=== PATIENT | female | born 1945 | race Caucasian/White ===

== ENCOUNTER 2018-02-09 17:15 | Emergency (ER) | payer MEDICARE ==
--- OUTSIDE RECORDS SUMMARY | 2018-02-09 18:43 | XMS REPORT ---
:1945 External Reference #:[id number] Author Organization [facility] Address [address] [place] [address] Phone [phone] Care Team Providers Name Role Phone Arminda Lieberman M.D., R.D. Care Team Information Pipe Jeeper Unavailable Payers Type Date Identification Numbers Payment Provider Subscriber Commercial Effective: Policy Number: [facility] Nigel Goodson 2012 [id number] Expires: 2014 PayID: [id number] [address] [place] [address] Commercial Effective: 2014 Policy Number: [facility] Nigel Goodson [id number] PayID: [id number] [address] [place] [address] Problems Description No Information Social History Type Date Description Comments Marital Status Diet Healthy, Well Balanced is vegan so she cooks vegan. Eats fish and some poultry, eggs. 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 Quit age [age]. 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-C , may repeat in 2 hours if needed Calcium 600 0 Active Tablets 600mg 1 by Unknown 000 mouth every day [facility] D3 0 Active Capsules 1000Unit Unknown 000 Meclizine HCL Hx Tablets Arminda 016 - Luisana, Mamadou RTani [address] 40mg 21caps 1 by K29.01 Reggie 016 - mouth in [place], the MD 016 morning before eating Zofran Odt Hx Tablets 4mg 10tabs 1 tab by Reggie Soler - Dispers mouth [place], three MD 016 times a day Immunizations CPT Code Status Date Vaccine Lot # [id number] Given 08/16/2017 Influenza Virus Vaccine, Quadrivalent, 3 Yr > Quad, Preserv Free [id number] Given 02/02/2017 Prevnar-13 Pneumococcal Conjugate Vaccine [id number] Given 07/29/2016 Influenza Vaccine High Dose PF [id number] Given 09/04/2015 Influenza Vaccine High Dose PF Vital Signs Date Vital Result Comment 02/01/2018 Weight 133.00 lb Weight in kg's 60.329 BP Systolic 118 mmHg BP Diastolic 60 mmHg Heart Rate 71 /min Body Temperature 99.3 F Respiratory Rate 18 /min Height 64 inches 5'4" BMI (Body Mass Index) 22.8 kg/m2 O2 % BldC Oximetry 99 % 01/02/2018 Weight 136.00 lb Weight in kg's 61.690 BP Systolic 128 mmHg BP Diastolic 70 mmHg Heart Rate 60 /min Body Temperature 97.3 F Respiratory Rate 18 /min 02/02/2017 Weight 131.00 lb Weight in kg's 59.422 BP Systolic 110 mmHg BP Diastolic 60 mmHg Heart Rate 64 /min Respiratory Rate 12 /min Height 64 inches 5'4" BMI (Body Mass Index) 22.5 kg/m2 08/02/2016 Weight 127.00 lb Weight in kg's 57.607 BP Systolic 106 mmHg BP Diastolic 50 mmHg Heart Rate 66 /min Body Temperature 98.9 F Respiratory Rate 16 /min 05/08/2016 Weight 132.00 lb Weight in kg's 59.875 BP Systolic 145 mmHg BP Diastolic 60 mmHg Heart Rate 72 /min Body Temperature 98.1 F O2 % BldC Oximetry 99 % 05/05/2016 Weight 132.00 lb Weight in kg's 59.875 BP Systolic 108 mmHg BP Diastolic 59 mmHg Heart Rate 68 /min Body Temperature 97.7 F O2 % BldC Oximetry 98 % 04/28/2016 Weight 132.00 lb Weight in kg's 59.875 BP Systolic 120 mmHg BP Diastolic 64 mmHg Heart Rate 56 /min Body Temperature 99.4 F O2 % BldC Oximetry 98 % 01/13/2015 Weight 136.00 lb Weight in kg's 61.690 BP Systolic 100 mmHg BP Diastolic 50 mmHg Heart Rate 62 /min 10/28/2014 Weight 134.00 lb Weight in kg's 60.782 BP Systolic 100 mmHg BP Diastolic 48 mmHg Heart Rate 62 /min Height 64 inches 5'4" BMI (Body Mass Index) 23.0 kg/m2 Results Test Date Test Result H/L Range Note Comp Metabolic Panel 08/02/2016 Sodium 137 mmol/L 133-145 Potassium 4.6 mmol/L 3.5-5.0 Chloride 101 mmol/L 101-111 Co2 Carbon Dioxide 29 mmol/L 22-32 Anion Gap 7 mmol/L 2-11 Glucose 91 mg/dL 70-100 Blood Urea Nitrogen 23 mg/dL 6-24 Creatinine 1.13 mg/dL High 0.51-0.95 BUN/Creatinine Ratio 20.4 High 8-20 Calcium 9.8 mg/dL 8.6-10.3 Total Protein 7.7 g/dL 6.4-8.9 Albumin 4.3 g/dL 3.2-5.2 Globulin 3.4 g/dL 2-4 Albumin/Globulin Ratio 1.3 1-3 Total Bilirubin 0.30 mg/dL 0.2-1.0 Alkaline Phosphatase 65 U/L 34-104 Alt 15 U/L 7-52 Ast 21 U/L 13-39 Egfr Non- 47.3 >60 Egfr 60.9 >60 1 CBC Auto Diff 08/02/2016 White Blood Count 7.7 10^3/uL 3.5-10.8 Red Blood Count 3.68 10^6/uL Low 4.0-5.4 Hemoglobin 11.8 g/dL Low 12.0-16.0 Hematocrit 35 % 35-47 Mean Corpuscular Volume 96 fL 80-97 Mean Corpuscular Hemoglobin 32 pg High 27-31 Mean Corpuscular HGB Conc 33 g/dL 31-36 Red Cell Distribution Width 14 % 10.5-15 Platelet Count 360 10^3/uL 150-450 Mean Platelet Volume 9 um3 7.4-10.4 Abs Neutrophils 3.9 10^3/uL 1.5-7.7 Abs Lymphocytes 2.9 10^3/uL 1.0-4.8 Abs Monocytes 0.5 10^3/uL 0-0.8 Abs Eosinophils 0.3 10^3/uL 0-0.6 Abs Basophils 0.1 10^3/uL 0-0.2 Abs Nucleated RBC 0 10^3/uL Granulocyte % 50.5 % 38-83 Lymphocyte % 38.0 % 25-47 Monocyte % 6.8 % 1-9 Eosinophil % 3.5 % 0-6 Basophil % 1.2 % 0-2 Nucleated Red Blood Cells % 0 Laboratory test finding 08/02/2016 TSH (Thyroid Stim Horm) 1.71 mcIU/mL 0.34-5.60 2 C Reactive Protein 2.89 mg/L < 5.00 3 Laboratory test 07/06/2016 Surgical Interface SEE RESULT BELOW 4, 5 finding Order CBC Auto Diff 05/08/2016 White Blood Count 5.5 10^3/uL 3.5-10.8 Red Blood Count 3.33 10^6/uL Low 4.0-5.4 Hemoglobin 10.5 g/dL Low 12.0-16.0 Hematocrit 32 % Low 35-47 Mean Corpuscular Volume 96 fL 80-97 Mean Corpuscular Hemoglobin 32 pg High 27-31 Mean Corpuscular HGB Conc 33 g/dL 31-36 Red Cell Distribution Width 14 % 10.5-15 Platelet Count 515 10^3/uL High 150-450 Mean Platelet Volume 8 um3 7.4-10.4 Abs Neutrophils 3.6 10^3/uL 1.5-7.7 Abs Lymphocytes 1.5 10^3/uL 1.0-4.8 Abs Monocytes 0.2 10^3/uL 0-0.8 Abs Eosinophils 0.1 10^3/uL 0-0.6 Abs Basophils 0.1 10^3/uL 0-0.2 Abs Nucleated RBC 0.01 10^3/uL Granulocyte % 65.4 % 38-83 Lymphocyte % 27.9 % 25-47 Monocyte % 3.7 % 1-9 Eosinophil % 1.0 % 0-6 Basophil % 2.0 % 0-2 Nucleated Red Blood Cells % 0.2 Urinalysis Profile 05/08/2016 Urine Color Yellow Urine Appearance Clear Urine Specific Kinde 1.011 1.010-1.030 Urine pH 6.0 5-9 Urine Urobilinogen Negative Negative Urine Ketones Negative Negative Urine Protein Negative Negative Urine Leukocytes Negative Negative Urine Blood Negative Negative Urine Nitrite Negative Negative Urine Bilirubin Negative Negative Urine Glucose Negative Negative Laboratory test finding 05/08/2016 Lactic Acid 1.0 mmol/L 0.5-2.0 6 Comp Metabolic Panel 05/08/2016 Sodium 131 mmol/L Low 133-145 Chloride 98 mmol/L Low 101-111 Co2 Carbon Dioxide 24 mmol/L 22-32 Glucose 97 mg/dL 70-100 Blood Urea Nitrogen 12 mg/dL 6-24 Creatinine 0.87 mg/dL 0.51-0.95 BUN/Creatinine Ratio 13.8 8-20 Calcium 9.2 mg/dL 8.6-10.3 Total Protein 7.4 g/dL 6.4-8.9 Albumin 3.4 g/dL 3.2-5.2 Globulin 4.0 g/dL 2-4 Albumin/Globulin Ratio 0.9 Low 1-3 Total Bilirubin 0.50 mg/dL 0.2-1.0 Alkaline Phosphatase 440 U/L High 34-104 Alt 128 U/L High 7-52 Egfr Non- 64.0 >60 Egfr 82.3 >60 7 Potassium 4.1 mmol/L 3.5-5.0 Anion Gap 9 mmol/L 2-11 Ast 64 U/L High 13-39 Laboratory test finding 05/08/2016 Lipase 30 U/L 11.0-82.0 C Reactive Protein 39.85 mg/L High < 5.00 8 Laboratory test finding 04/24/2016 Lactic Acid 1.1 mmol/L 0.5-2.0 9 Urine Culture SEE RESULT BELOW 10 Urinalysis Profile 04/24/2016 Urine Color Gracy Urine Appearance Cloudy Urine Specific Kinde 1.030 1.010-1.030 Urine pH 5.0 5-9 Urine Urobilinogen Negative Negative Urine Ketones 1+ Negative Urine Protein 1+(30 mg/dL) Negative Urine Leukocytes Negative Negative Urine Blood Negative Negative * * Negative 11 Urine Nitrite Negative Negative Urine Bilirubin Negative Negative Urine Glucose 1+(50 mg/dL) Negative Urine White Blood Cell Trace(0-5/hpf) Absent Urine Red Blood Cell 2+(6-10/hpf) Absent Urine Bacteria 1+ Absent Urine Squamous Epithelial Cell Present Absent Urine Hyaline Casts Present Absent Laboratory test finding 04/24/2016 Troponin I 0.01 ng/mL <0.03 12 Comp Metabolic Panel 04/24/2016 Sodium 131 mmol/L Low 133-145 Potassium 3.5 mmol/L 3.5-5.0 Chloride 100 mmol/L Low 101-111 Co2 Carbon Dioxide 23 mmol/L 22-32 Anion Gap 8 mmol/L 2-11 Glucose 178 mg/dL High 70-100 Blood Urea Nitrogen 18 mg/dL 6-24 Creatinine 0.90 mg/dL 0.51-0.95 BUN/Creatinine Ratio 20.0 8-20 Calcium 7.9 mg/dL Low 8.6-10.3 Total Protein 6.3 g/dL Low 6.4-8.9 Albumin 3.3 g/dL 3.2-5.2 Globulin 3.0 g/dL 2-4 Albumin/Globulin Ratio 1.1 1-3 Total Bilirubin 0.40 mg/dL 0.2-1.0 Alkaline Phosphatase 121 U/L High 34-104 Alt 58 U/L High 7-52 Ast 58 U/L High 13-39 Egfr Non- 61.5 >60 Egfr 79.2 >60 13 CBC Auto Diff 04/24/2016 White Blood Count 4.9 10^3/uL 3.5-10.8 Red Blood Count 3.40 10^6/uL Low 4.0-5.4 Hemoglobin 10.9 g/dL Low 12.0-16.0 Hematocrit 32 % Low 35-47 Mean Corpuscular Volume 95 fL 80-97 Mean Corpuscular Hemoglobin 32 pg High 27-31 Mean Corpuscular HGB Conc 34 g/dL 31-36 Red Cell Distribution Width 13 % 10.5-15 Platelet Count 167 10^3/uL 150-450 Mean Platelet Volume 9 um3 7.4-10.4 Abs Neutrophils 4.2 10^3/uL 1.5-7.7 Abs Lymphocytes 0.5 10^3/uL Low 1.0-4.8 Abs Monocytes 0.2 10^3/uL 0-0.8 Abs Eosinophils 0 10^3/uL 0-0.6 Abs Basophils 0 10^3/uL 0-0.2 Abs Nucleated RBC 0 10^3/uL Granulocyte % 84.4 % High 38-83 Lymphocyte % 11.1 % Low 25-47 Monocyte % 4.0 % 1-9 Eosinophil % 0 % 0-6 Basophil % 0.5 % 0-2 Nucleated Red Blood Cells % 0.1 Laboratory test finding 04/24/2016 Inr/Protime 1.11 0.89-1.11 Urine DIP 10/28/2014 Specific Kinde 1.010 1.01-1.02 Urine pH 7 High 5-6 Leukocytes trace Neg Urine Nitrites neg Neg Total Protein, Urine neg Neg Urine Glucose norm Norm Urine Ketones neg Neg Urobilinogen norm Norm Urine Bilirubin neg Neg Urine Blood neg Neg Comp Metabolic Panel 10/28/2014 Sodium 139 mmol/L 133-145 Potassium 4.0 mmol/L 3.5-5.0 Chloride 102 mmol/L 101-111 Co2 Carbon Dioxide 31 mmol/L 22-32 Anion Gap 6 mmol/L 2-11 Glucose 77 mg/dL 70-100 Blood Urea Nitrogen 16 mg/dL 6-24 Creatinine 1.02 mg/dL High 0.51-0.95 BUN/Creatinine Ratio 15.7 8-20 Calcium 9.5 mg/dL 8.6-10.3 Total Protein 7.0 g/dL 6.4-8.9 Albumin 4.1 g/dL 3.2-5.2 Globulin 2.9 g/dL 2-4 Albumin/Globulin Ratio 1.4 1-3 Total Bilirubin 0.40 mg/dL 0.2-1.0 Alkaline Phosphatase 53 U/L 34-104 Alt 13 U/L 7-52 Ast 18 U/L 13-39 Egfr Non- 53.6 >60 Egfr 68.9 >60 14 Lipid Profile (Trig/Chol/HDL) 10/28/2014 Triglycerides 89 mg/dL 15 Cholesterol 205 mg/dL 16 HDL Cholesterol 62.2 mg/dL 17 LDL Cholesterol 125 mg/dL 18 1 Because ethnic data is not always readily available, this report includes an eGFR for both -Americans and non- Americans. The National Kidney Disease Education Program (NKDEP) does not endorse the use of the MDRD equation for patients that are not between the ages of 18 and 70, are , have extremes of body size, muscle mass, or nutritional status, or are non- or non-. According to the National Kidney Foundation, irrespective of diagnosis, the stage of the disease is based on the level of kidney function: Stage Description GFR(mL/min/1.73 m(2)) 1 Kidney damage with normal or decreased GFR 90 2 Kidney damage with mild decrease in GFR 60-89 3 Moderate decrease in GFR 30-59 4 Severe decrease in GFR 15-29 5 Kidney failure <15 (or dialysis) 2 [id number] 3 Acute inflammation: >10.00 4 [id number] 5 SEE RESULT BELOW Name: NIGEL GOODSON : [address]: Don Osorio MD Acct: [id number] Unit: [id number] AGE: 71 Location: [facility] Re07/06/16 SEX: F Status: REG REF SPEC: [id number] RAFAEL: 07/06/[address] [facility] [address]: Don Osorio MD REQ: [id number] RECD: 07/06/16 STATUS: BRIANDA ZENDEJAS DR: Alpa Lieberman MD _ ORDERED: LEVEL IV COMMENTS: [id number] FINAL DIAGNOSIS Skin, left anterior shoulder, excision: -- Scar and residual basal cell carcinoma, nodular type. -- Deep, tip, and lateral margins are clear. COMMENT: The previous lesion at this site has been completely excised. CLINICAL HISTORY Previous biopsy at [place] [id number] B with diagnosis of basal cell carcinoma , superficial and nodular types; extending to the tissue edge PRE-OPERATIVE DIAGNOSIS Basal cell carcinoma; suture sarmiento 12 o'clock proximal apex margin GROSS DESCRIPTION The specimen is received in formalin labeled, Excision Basal Cell Carcinoma Left Anterior Shoulder, Suture Sarmiento 12:00 Proximal [place] Margin, and consists of a 3.6 x 1.2 cm torres-white wrinkled skin ellipse excised to a depth of 0.4 cm. There is a suture attached to one long axis, which designates the 12:00 proximal apex margin. The specimen is inked as follows: 9:00 half black, 3:00 half blue and 12:00 tip green, serially sectioned from 12:00 to 6:00 and entirely submitted in cassettes A through C to include ellipse ends in cassette A. Signed (signature on file) Abby Braden MD 11/22 1033 END OF REPORT * ML=Testing performed at Main Lab DEPARTMENT OF PATHOLOGY, [address] [place] [address] Jimmy Falcon M.D. Director [facility] # [id number] [facility] Severe Sepsis and Septic Shock Management Bundle Measure requires all lactic acids initially measuring >2.0 mmol/L be repeated. 7 Because ethnic data is not always readily available, this report includes an eGFR for both -Americans and non- Americans. The National Kidney Disease Education Program (NKDEP) does not endorse the use of the MDRD equation for patients that are not between the ages of 18 and 70, are , have extremes of body size, muscle mass, or nutritional status, or are non- or non-. According to the National Kidney Foundation, irrespective of diagnosis, the stage of the disease is based on the level of kidney function: Stage Description GFR(mL/min/1.73 m(2)) 1 Kidney damage with normal or decreased GFR 90 2 Kidney damage with mild decrease in GFR 60-89 3 Moderate decrease in GFR 30-59 4 Severe decrease in GFR 15-29 5 Kidney failure <15 (or dialysis) 8 Acute inflammation: >10.00 9 [facility] Severe Sepsis and Septic Shock Management Bundle Measure requires all lactic acids initially measuring >2.0 mmol/L be repeated. 10 SEE RESULT BELOW Name: HAMZAHLORETANIGEL : [address]: Valentín Anthony MD Acct: [id number] Unit: [id number] AGE: 71 Location: ED Re04/24/16 SEX: F Status: DEP ER SPEC: [id number] RAFAEL: 04/24/16-[address] [facility] [address]: Valentín Anthony MD REQ: [id number] RECD: 04/24/168529 STATUS: COMP [facility] DR: Arminda Lieberman MD _ SOURCE: URINE SPDESC: ORDERED: Urine Culture Procedure Result Reported Site Urine Culture Final 04/26/16- 832 ML No growth of clinically significant organisms * ML - MAIN LAB ([facility]) . END OF REPORT * ML=Testing performed at Main Lab DEPARTMENT OF PATHOLOGY, [address] [place] [address] Jimmy Falcon M.D. Director [facility] # [id number] 11 *Ascorbic acid is present which may interfere with detection of blood. 12 Reference Range and Interpretation: TnI (ng/mL) Interpretation Less Than 0.03 ng/mL Not supportive of diagnosis of NC 0.03 - 0.50 ng/mL Indeterminate: suggest serial studies if clinically indicated. Greater than 0.5 ng/mL Consistent with diagnosis of NC 13 Because ethnic data is not always readily available, this report includes an eGFR for both -Americans and non- Americans. The National Kidney Disease Education Program (NKDEP) does not endorse the use of the MDRD equation for patients that are not between the ages of 18 and 70, are , have extremes of body size, muscle mass, or nutritional status, or are non- or non-. According to the National Kidney Foundation, irrespective of diagnosis, the stage of the disease is based on the level of kidney function: Stage Description GFR(mL/min/1.73 m(2)) 1 Kidney damage with normal or decreased GFR 90 2 Kidney damage with mild decrease in GFR 60-89 3 Moderate decrease in GFR 30-59 4 Severe decrease in GFR 15-29 5 Kidney failure <15 (or dialysis) 14 Because ethnic data is not always readily available, this report includes an eGFR for both -Americans and non- Americans. The National Kidney Disease Education Program (NKDEP) does not endorse the use of the MDRD equation for patients that are not between the ages of 18 and 70, are , have extremes of body size, muscle mass, or nutritional status, or are non- or non-. According to the National Kidney Foundation, irrespective of diagnosis, the stage of the disease is based on the level of kidney function: Stage Description GFR(mL/min/1.73 m(2)) 1 Kidney damage with normal or decreased GFR 90 2 Kidney damage with mild decrease in GFR 60-89 3 Moderate decrease in GFR 30-59 4 Severe decrease in GFR 15-29 5 Kidney failure <15 (or dialysis) 15 Desirable <150 Borderline high 150-199 High 200-499 Very High >500 16 Desirable <200 Borderline high 200-239 High >239 17 Low <40 Desirable: 40-60 High: >60 18 Desirable <100 Near Optimal 100-129 Borderline high 130-159 High 160-189 Very High >189 Procedures Description No Information Encounters Type Date Location Provider CPT E/M Dx Office Visit 01/02/2018 11:15a [place] [address] M24.542 Office Visit 02/02/2017 9:30a Main Office Arminda Lieberman M.D., R.D. G0439 Z00.00 Z23 Office Visit 08/02/2016 3:45p Main Office Arminda Lieberman M.D., R.D. 03967 A87.9 H81.13 I95.0 Office Visit 05/08/2016 9:45a Main Office Arminda Lieberman M.D., R.Rafaela 62842 R51 M54.5 R10.84 Office Visit 05/05/2016 11:15a [place] [address] K29.01 Office Visit 04/28/2016 3:30p [place] [address] R51 Office Visit 01/13/2015 3:00p Main Office Arminda Lieberman M.D., R.DGiuliana 37514 238.2 Office Visit 10/28/2014 1:45p Main Office Arminda Lieberman M.D., R.DGiuliana G0438 V70.0 272.2 238.2 Plan of Care 02/01/2018 - Arminda Lieberman M.D., R.D.Z00.00 Encntr for general adult medical exam w/o abnormal findingsNew Labs:Comp Metabolic PanelLipid Profile (Trig/Chol/ HDL)Liver Function PanelRecommendations:The 5 Year Plan for your preventive health care is: Your colonoscopy is due next year. Flu shot yearly. We will give you the new Shingles vaccine with your upcoming labs. Annual exam at [facility]. Regular eye and dental care. Check your cholesterol and screen for diabetes yearly. Periodic mammograms and bone density scans.
--- NOTE | 2018-02-09 20:11 | RAD ---
INDICATION: Pain and swelling. COMPARISON: None TECHNIQUE: Duplex interrogation of the Lowerextremity was performed. FINDINGS: Deep veins: The common femoral, great saphenous, profunda femoris, proximal, mid, and distal deep femoral, popliteal, posterior tibial, and peroneal veins are patent. There is normal compressibility, augmentation, and phasic flow. Superficial veins: There are no findings of superficial thrombophlebitis. Popliteal fossa:There a popliteal cyst. The cyst measures 2.2 x 2.0 x 4.0 cm. There is a second elliptical collection in the calf measuring 7.9 x 0.9 x 3.8 cm which is likely contiguous with the popliteal cyst and has dissected into the soft tissues of the calf. Soft tissues:There are no soft tissue abnormalities. IMPRESSION: NO EVIDENCE OF DEEP VENOUS THROMBOSIS. POPLITEAL CYST WITH PRESUMED DISSECTION OF THE CYST INTO THE CALF
--- NOTE | 2018-02-09 21:07 | ED ---
Lower Extremity - HPI Summary HPI Summary: Pt here w/ LLE swelling this morning. 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 Although patient is somewhat active, she reports this was definitely a change in activity as well as a new surface for walking on even ground. She denies history of joint issues but does report this started as fullness and tenderness behind her left knee last week. She also admits to intermittent Cramping however she gets this bilaterally and has had it since she was a child. Typically treats with potassium and seems to improve. She's had a different type of ache in her left calf this time which is worse today with new onset of swelling. She also admits to driving in her vehicle down and back to [place] or [facility] yesterday. Denies redness, fever, streaking, groin pain, increased heart rate, chest pain, shortness of breath, bloody cough, back pain. No recent history of trauma, denies smoking, no history of cancer, no hormone use, no bleeding or clotting disorders. She is tried Tylenol and ibuprofen with minimal relief although she admits it is not terribly painful, she is just concerned about the amount of swelling as is 3 cm larger than her other calf measured at PCPs office earlier today. - History of Current Complaint Chief Complaint: EDExtremityLower Stated Complaint: POSS BLOOD CLOT LT LEG Time Seen by Provider: 02/09/18 17:42 Hx Obtained From: Patient Pain Intensity: 2 - Allergies/Home Medications Allergies/Adverse Reactions: Allergies Allergy/AdvReac Type Severity Reaction Status Date / Time codeine Allergy Vomiting Verified 02/09/18 17:50 diazepam Allergy Vomiting Verified 02/09/18 17:50 morphine Allergy Vomiting Verified 02/09/18 17:50 narcotics Allergy Severe Vomiting Uncoded 02/09/18 17:32 PMH/Surg Hx/FS Hx/Imm Hx Previously Healthy: Yes Endocrine/Hematology History: Denies: Hx Anticoagulant Therapy, Hx Blood Disorders, Hx Unexplained Bleeding , Hx Coagulopothy Cardiovascular History: Denies: Hx Aneurysm, Hx Deep Vein Thrombosis, Hx Embolism Musculoskeletal History: Denies: Hx Arthritis, Hx Osteoporosis Infectious Disease History: No Infectious Disease History: Denies: Traveled Outside the [place] in Last 30 Days - Family History Known Family History: Positive: None - Social History Occupation: Retired Lives: With Family Alcohol Use: None Hx Substance Use: No Substance Use Type: Reports: None Hx Tobacco Use: No Smoking Status (MU): Never Smoked Tobacco Review of Systems Constitutional: Negative Negative: Fever, Chills, Fatigue Cardiovascular: Negative Gastrointestinal: Negative Positive: no symptoms reported Positive: Myalgia - calf aching at times, Decreased ROM - tightness w/ flexingLt knee, Edema Neurological: Negative Psychological: Normal All Other Systems Reviewed And Are Negative: Yes Physical Exam Triage Information Reviewed: Yes Vital Signs On Initial Exam: Initial Vitals Temp Pulse Resp BP Pulse Ox 95.8 F 68 16 128/56 99 02/09/18 17:28 02/09/18 17:28 02/09/18 17:28 02/09/18 17:28 02/09/18 17:28 Vital Signs Reviewed: Yes Appearance: Positive: Well-Appearing, No Pain Distress, Well-Nourished Skin: Positive: Warm, Skin Color Reflects Adequate Perfusion, Dry - Superficial spider veins over proximal left tibial region patient - reports these are new since leg is swollen however she does have other spider veins on bilateral lower extremities; no ecchymosis, no erythema, no streaking, no lesions over bilateral lower extremities Head/Face: Positive: Normal Head/Face Inspection Eyes: Positive: EOMI ENT: Positive: Hearing grossly normal Respiratory/Lung Sounds: Positive: Breath Sounds Present Cardiovascular: Positive: Normal, Pulses are Symmetrical in both Upper and Lower Extremities, Leg Edema Left - Equivocal Homans. Negative: Leg Edema Right Musculoskeletal: Positive: Normal, Strength/ROM Intact, Other - Left popliteal space is full and with mild tenderness to palpation compared to right; no laxity appreciated with special tests of bilateral knee joints; no joint line tenderness; negative Iris's Neurological: Positive: Normal, Sensory/Motor Intact, Alert, Oriented to Person Place, Time, CN Intact II-III Psychiatric: Positive: Normal Diagnostics - Vital Signs Vital Signs Temp Pulse Resp BP Pulse Ox 02/09/18 17:28 95.8 F 68 16 128/56 99 - Laboratory Lab Statement: Any lab studies that have been ordered have been reviewed, and results considered in the medical decision making process. Lower Extremity Course/Dx - Course Course Of Treatment: Patient's left lower extremity ultrasound reveals a popliteal cyst with dissection into calf - no DVTs identified. Discussed possibility of Joya cyst forming from her new and atypical form of exercise ( walking on uneven ground, most likely pivoting and carrying items heavier than usual, etc). Encouraged rest, elevation and gentle massage towards the heart along with ibuprofen with food. She will also follow up with PCP on Tuesday to reassess size of calf. Discussed possibility of orthopedic follow-up if symptoms persist however if her leg continues to expand or she develops danger signs and symptoms of a DVT as we discussed she's at risk for this w/ swelling in her LE, she will return to the emergency department. - Diagnoses Provider Diagnoses: Joya's cyst, ruptured Discharge - Sign-Out/Discharge Documenting (check all that apply): Discharge - Discharge Plan Condition: Stable Disposition: HOME Patient Education Materials: Bakers Cyst (ED) Referrals: Arminda Bahena MD [Primary Care Provider] - Additional Instructions: Rest, elevate, massage toward heart and stay hydrated Take ibuprofen 600mg every 6 hours with food as needed for pain/swelling Do not sit or stand for prolonged periods Follow-up with PCP Tuesday - call tomorrow to schedule an appointment *If you develop worse swelling, pain, redness, streaking, fever, chills, chest pain, shortness of breath or increased heart rate, return to ED - Billing Disposition and Condition Condition: STABLE Disposition: HOME
[2018-02-09 21:23] VITALS: BP 123/70
== END 2018-02-09 21:25 | disposition home or self-care (01) ==
LOC: ED 17:15
DX: M66.0 Rupture of popliteal cyst (principal)
CPT/HCPCS: 99281

== ENCOUNTER 2018-07-20 22:34 | Emergency (ER) | payer MEDICARE ==
[2018-07-20] MEDS ORDERED: Proparacaine 0.5% OPHTH.SOL* 15 ML BTL LEFT EYE ONE (23:22)
[2018-07-20] MEDS ORDERED: Fluorescein Sod TOPICAL 0.6* 0.6 MG TEST OPHTHALMIC ONE (23:22)
--- NOTE | 2018-07-20 23:33 | ED ---
Throat Pain/Nasal Congestion - HPI Summary HPI Summary: Patient complains of right right eye pain and only being able to remove a partial contact lens from right eye 2 hours ago. Denies any other symptoms or pain. Medical history is none. - History of Current Complaint Chief Complaint: EDEyeProblem Time Seen by Provider: 07/20/18 23:05 Hx Obtained From: Patient Severity: Mild Associated Signs And Symptoms: Positive: Negative Cough: None - Allergies/Home Medications Allergies/Adverse Reactions: Allergies Allergy/AdvReac Type Severity Reaction Status Date / Time codeine Allergy Vomiting Verified 07/20/18 22:50 diazepam Allergy Vomiting Verified 07/20/18 22:50 morphine Allergy Vomiting Verified 07/20/18 22:50 narcotics Allergy Severe Vomiting Uncoded 07/20/18 22:50 PMH/Surg Hx/FS Hx/Imm Hx Endocrine/Hematology History: Denies: Hx Anticoagulant Therapy, Hx Blood Disorders, Hx Unexplained Bleeding Cardiovascular History: Denies: Hx Aneurysm, Hx Deep Vein Thrombosis, Hx Embolism Musculoskeletal History: Denies: Hx Arthritis, Hx Osteoporosis Infectious Disease History: No Infectious Disease History: Denies: Traveled Outside the [place] in Last 30 Days - Family History Known Family History: Positive: None - Social History Alcohol Use: None Hx Substance Use: No Substance Use Type: Reports: None Hx Tobacco Use: No Smoking Status (MU): Never Smoked Tobacco Review of Systems Constitutional: Negative Eyes: Other ENT: Negative Cardiovascular: Negative Respiratory: Negative Gastrointestinal: Negative Genitourinary: Negative Musculoskeletal: Negative Skin: Negative Neurological: Negative Psychological: Normal All Other Systems Reviewed And Are Negative: Yes Physical Exam - Summary Physical Exam Summary: Positive corneal abrasion right eye. Half a contact lens was removed from under upper eyelid. Triage Information Reviewed: Yes Vital Signs On Initial Exam: Initial Vitals Temp Pulse Resp BP Pulse Ox 98.0 F 70 16 151/62 99 07/20/18 22:47 07/20/18 22:47 07/20/18 22:47 07/20/18 22:47 07/20/18 22:47 Vital Signs Reviewed: Yes Appearance: Positive: Well-Appearing Skin: Positive: Warm Head/Face: Positive: Normal Head/Face Inspection Eyes: Positive: EOMI, JOVANA, Conjunctiva Inflammed. Negative: Discharge Neck: Positive: Supple Respiratory/Lung Sounds: Positive: Clear to Auscultation Cardiovascular: Positive: Normal Abdomen Description: Positive: Nontender Musculoskeletal: Positive: Normal Neurological: Positive: Normal Psychiatric: Positive: Normal AVPU Assessment: Alert - [place] Coma Scale Best Eye Response: 4 - Spontaneous Best Motor Response: 6 - Obeys Commands Best Verbal Response: 5 - Oriented Coma Scale Total: 15 Diagnostics - Vital Signs Vital Signs Temp Pulse Resp BP Pulse Ox 07/20/18 22:47 98.0 F 70 16 151/62 99 - Laboratory Lab Statement: Any lab studies that have been ordered have been reviewed, and results considered in the medical decision making process. EENT Course/Dx - Course Course Of Treatment: Patient complains of right right eye pain and only being able to remove a partial contact lens from right eye 2 hours ago. Denies any other symptoms or pain. Medical history is none. Physical exam:Positive corneal abrasion right eye. Half a contact lens was removed from under upper eyelid. Vital signs normal. Gentamicin antibiotic drops, 2 drops every 4 hours. follow-up with ophthalmology - Diagnoses Provider Diagnoses: Corneal abrasion due to contact lens, H/O retained foreign body fully removed Discharge - Sign-Out/Discharge Documenting (check all that apply): Patient Departure - Discharge Plan Condition: Stable Disposition: HOME Patient Education Materials: Corneal Abrasion (ED) Referrals: Arminda Bahena MD [Primary Care Provider] - Additional Instructions: Do not put contact lens back in right eye until evaluated by ophthalmology. Place 2 antibiotic drops in right eye every 4 hours. Follow-up with ophthalmology as soon as possible. Return to the ED for any new or worsening symptoms - Billing Disposition and Condition Condition: STABLE Disposition: Home
[2018-07-20] MEDS ORDERED: Gentamicin 0.3% OPHTH.SOLN* 5 ML BTL RIGHT EYE SCH (23:45)
[2018-07-21 00:24] VITALS: BP 138/64
== END 2018-07-21 00:21 | disposition home or self-care (01) ==
LOC: ED 22:34
DX: H18.821 Corneal disorder due to contact lens, right eye (principal); H57.11 Ocular pain, right eye
CPT/HCPCS: 99282; A9270-GY

== ENCOUNTER 2020-03-09 14:36 | Inpatient (IN) ==
[2020-03-09] MEDS ORDERED: Lidocaine 1% VIAL 10 MG/ML VIAL INJ ONE (15:23)
[2020-03-09] MEDS ORDERED: Propofol 10 MG/ML 20 ML BTL IV PUSH ONE (15:28)
[2020-03-09] MEDS ORDERED: Ondansetron 4 mg VIAL 2 MG/ML 2 ml VIAL IV ONE (15:43)
[2020-03-09 16:10] LABS: ABS Basophils 0.1 10^3/ul (0-0.2); ABS Eosinophils 0.1 10^3/ul (0-0.6); ABS Lymphocytes 2.2 10^3/ul (1.0-4.8); ABS Monocytes 0.5 10^3/ul (0-0.8); Eosinophil % 1.1 %; Hematocrit 37 % (35-47); Hemoglobin 12.5 g/dL (12.0-16.0); Lymphocyte % 23.6 %; Mean Corpuscular HGB Conc 34 g/dL (31-36); Mean Corpuscular Hemoglobin 33 pg (27-31); Mean Corpuscular Volume 96 fL (80-97); Mean Platelet Volume 8.1 fL (7.4-10.4); Nucleated Red Blood Cells % 0.1; Platelet Count 312 10^3/uL (150-450); Red Blood Count 3.84 10^6 /uL (3.70-4.87); Red Cell Distribution Width 14 % (10-15); White Blood Count 9.2 10^3/uL (3.5-10.8)
[2020-03-09] MEDS ORDERED: NS 0.9% 1000 ml BAG 1,000 ML IV ONE (16:10)
[2020-03-09 16:13] LABS: Activated Partial Thrombo Time 28.9 seconds (26.0-38.0); INR 0.99 (0.82-1.09)
[2020-03-09 16:21] LABS: ALT 22 U/L (7-52); Albumin 4.4 g/dL (3.2-5.2); Albumin/Globulin Ratio 1.2 (1-3); Alkaline Phosphatase 50 U/L (34-104); BUN/Creatinine Ratio 19.8 (8-20); Blood Urea Nitrogen 21 mg/dL (6-24); CO2 Carbon Dioxide 26 mmol/L (22-32); Calcium 9.7 mg/dL (8.6-10.3); Chloride 100 mmol/L (101-111); EGFR Non-African American 50.4 (>60); Globulin 3.8 g/dL (2-4); Glucose 89 mg/dL (70-100); Sodium 136 mmol/L (135-145); Total Protein 8.2 g/dL (6.4-8.9)
[2020-03-09 16:45] LABS: Anion Gap 10 mmol/L (2-11)
[2020-03-09] MEDS ORDERED: Ondansetron 4 mg VIAL 2 MG/ML 2 ml VIAL IV PRN (17:39)
[2020-03-09 17:51] LABS: Potassium Redraw 4.2 mmol/L (3.5-5.0)
[2020-03-09] MEDS: Senna TAB 8.6 mg TAB PO SCH (19:53)
[2020-03-09] MEDS ORDERED: Heparin 5000 UNITS/ML VIAL(*) 1 ml vial SUBCUT SCH (22:00)
[2020-03-10] MEDS: Senna TAB 8.6 mg TAB PO SCH ×2 (09:21→21:50)
[2020-03-10] MEDS ORDERED: ceFAZolin 2 GM PREMIX in ORs 2 GM/50 ML BAG ONE (12:20)
[2020-03-10] MEDS ORDERED: DiMENhydriNATE IV 50 mg/ml 1 ml VIAL ONE (12:43)
[2020-03-10] MEDS ORDERED: Dexamethasone IV 4 MG/ML VIAL 1 ml VIAL ONE (12:43)
[2020-03-10] MEDS ORDERED: Propofol 10 MG/ML 20 ML BTL ONE (12:43)
[2020-03-10] MEDS ORDERED: Ondansetron 4 mg VIAL 2 MG/ML 2 ml VIAL ONE (12:43)
[2020-03-10] MEDS ORDERED: Lidocaine 2% PF 5 ML VIAL ONE (13:04)
[2020-03-10] MEDS ORDERED: Ketamine HCL 50 mg/ml 10 ml VIAL (500 MG) ONE (13:04)
[2020-03-10] MEDS ORDERED: DiMENhydriNATE IV 50 mg/ml 1 ml VIAL IV PUSH PRN (13:33)
[2020-03-10] MEDS ORDERED: EPHEDrine (Pressors) 50 MG/ML VIAL ONE (13:43)
[2020-03-10] MEDS ORDERED: Ondansetron 4 mg VIAL 2 MG/ML 2 ml VIAL IV PRN (14:16)
[2020-03-10] MEDS ORDERED: Ondansetron ODT 4 mg TAB 4 MG TAB PO PRN (14:16)
[2020-03-10] MEDS ORDERED: Magnesium Hydroxide LIQ 30 ML UDC PO PRN (14:16)
[2020-03-10] MEDS ORDERED: diPHENhydraMINE 25 mg TAB PO PRN (14:16)
[2020-03-10] MEDS ORDERED: diPHENhydraMINE IV 50 MG/ML 1 ml VIAL (BENADRYL) IV PRN (14:16)
[2020-03-10] MEDS ORDERED: Lactulose 30 ml UDC PO PRN (14:16)
[2020-03-10 16:23] LABS: ABS Lymphocytes 0.8 10^3/ul (1.0-4.8); ABS Monocytes 0.1 10^3/ul (0-0.8); Eosinophil % 0.2 %; Hematocrit 32 % (35-47); Hemoglobin 11.4 g/dL (12.0-16.0); Lymphocyte % 13.6 %; Mean Corpuscular HGB Conc 35 g/dL (31-36); Mean Corpuscular Hemoglobin 34 pg (27-31); Mean Corpuscular Volume 96 fL (80-97); Mean Platelet Volume 8.1 fL (7.4-10.4); Platelet Count 277 10^3/uL (150-450); Red Blood Count 3.39 10^6 /uL (3.70-4.87); Red Cell Distribution Width 14 % (10-15); White Blood Count 5.7 10^3/uL (3.5-10.8)
[2020-03-10 16:25] LABS: Activated Partial Thrombo Time 29.3 seconds (26.0-38.0); INR 1.05 (0.82-1.09)
[2020-03-10] MEDS: Lactated Ringers 1000 ml BAG 1,000 ML IV SCH (16:35)
[2020-03-10 16:56] LABS: EGFR African American 62.3 (>60); EGFR Non-African American 51.5 (>60)
[2020-03-10] MEDS: ceFAZolin 1 GM in Dextrose (*) 1 GM/50 ML BAG IVPB SCH (21:45)
[2020-03-10] MEDS: Magnesium Hydroxide LIQ 30 ML UDC PO SCH (21:50)
[2020-03-11] MEDS: Lactated Ringers 1000 ml BAG 1,000 ML IV SCH (05:39)
[2020-03-11] MEDS: ceFAZolin 1 GM in Dextrose (*) 1 GM/50 ML BAG IVPB SCH ×2 (05:39→13:15)
[2020-03-11 05:40] LABS: Hematocrit 30 % (35-47); Hemoglobin 9.9 g/dL (12.0-16.0); Mean Platelet Volume 8.1 fL (7.4-10.4); Platelet Count 230 10^3/uL (150-450)
[2020-03-11 06:01] LABS: BUN/Creatinine Ratio 17.1 (8-20); Calcium 8.7 mg/dL (8.6-10.3); EGFR African American 61.7 (>60); Potassium 4.4 mmol/L (3.5-5.0)
[2020-03-11] MEDS ORDERED: Vitamin THERAPEUTIC TAB PO SCH (09:00)
[2020-03-11] MEDS ORDERED: Heparin 5000 UNITS/ML VIAL(*) 1 ml vial SUBCUT SCH (09:00)
[2020-03-11] MEDS: Senna TAB 8.6 mg TAB PO SCH (09:18)
[2020-03-11] MEDS: Magnesium Hydroxide LIQ 30 ML UDC PO SCH (10:04)
[2020-03-11 11:59] VITALS: BP 104/43
== END 2020-03-11 15:50 | disposition home health service (06) | DRG 494 ==
LOC: ED 14:36 → SSU 17:39
PROVIDERS: ADMIT Internal Medicine; ATTEND Internal Medicine